=== PATIENT | female | born 1985 | race Caucasian/White ===

== ENCOUNTER 2018-08-20 15:38 | Emergency (ER) | payer SELFPAY ==
[2018-08-20 16:03] VITALS: BP 120/75
--- NOTE | 2018-08-20 16:37 | UC ---
Throat Pain/Nasal Leo HPI - HPI Summary HPI Summary: C/O allergic nasal congestion with sinus pain and ear fullness. Post nasal drip cough. - History of Current Complaint Chief Complaint: UCGeneralIllness Stated Complaint: SINUS Hx Obtained From: Patient Onset/Duration: Gradual Onset, Lasting Days - 3, Worse Since - today Severity: Moderate Pain Intensity: 6 Cough: Productive - post nasal drip mucus Associated Signs & Symptoms: Positive: Sinus Discomfort, Nasal Discharge Related History: Seasonal Allergies - Allergies/Home Medications Allergies/Adverse Reactions: Allergies Allergy/AdvReac Type Severity Reaction Status Date / Time No Known Allergies Allergy Verified 08/20/18 15:52 Home Medications: Home Medications Fexofenadine (NF) [Maryjo 180 (NF)] 180 mg PO BEDTIME 08/20/18 [History Confirmed 08/20/18] Finasteride [Propecia] 1 mg PO BEDTIME 08/20/18 [History Confirmed 08/20/18] Guaifen/Phenyleph/Acetaminophn [Tylenol Sinus Severe Caplet] 2 each PO Q4HR PRN 08/20/18 [History Confirmed 08/20/18] Spironolactone 100 mg PO BEDTIME 08/20/18 [History Confirmed 08/20/18] PMH/Surg Hx/FS Hx/Imm Hx Other Endocrine History: alopecia - Surgical History Surgical History: Yes Surgery Procedure, Year, and Place: hysterectomy. multiple laproscopies. benign tumor removed from left arm. cervix removed prior to hysterectomy. procedure to remove kidney stone. - Family History Known Family History: Positive: Cardiac Disease, Diabetes - Social History Occupation: Employed Full-time Lives: With Family Alcohol Use: Rare Substance Use Type: None Smoking Status (MU): Never Smoked Tobacco Review of Systems All Other Systems Reviewed And Are Negative: Yes ENT: Positive: Ear Ache, Nasal Discharge, Sinus Pain/Tenderness Respiratory: Positive: Cough Physical Exam Triage Information Reviewed: Yes Appearance: No Pain Distress, Well-Nourished, Ill-Appearing - mild Vital Signs: Initial Vital Signs Temp 97.2 F 08/20/18 15:56 Pulse 78 08/20/18 15:56 Resp 20 08/20/18 15:56 BP 120/75 08/20/18 15:56 Pulse Ox 100 08/20/18 15:56 Vital Signs Reviewed: Yes Eyes: Positive: Conjunctiva Inflamed - with allergies ENT: Positive: Pharynx normal, Nasal congestion - allergic congestion, TMs normal Neck exam: Normal Respiratory Exam: Normal Cardiovascular Exam: Normal Musculoskeletal Exam: Normal Neurological Exam: Normal Psychological Exam: Normal Skin Exam: Normal Throat Pain/Nasal Course/Dx - Differential Dx/Diagnosis Differential Diagnosis/HQI/PQRI: Otitis Media, Pharyngitis, Sinusitis, URI Provider Diagnosis: Allergic rhinitis, Acute sinusitis Discharge - Sign-Out/Discharge Documenting (check all that apply): Patient Departure All imaging exams completed and their final reports reviewed: No Studies - Discharge Plan Condition: Stable Disposition: HOME Prescriptions: Amoxicillin PO (*) [Amoxicillin 875 MG (*)] 875 mg PO BID #20 tab Montelukast Sodium TAB* [Singulair 10 MG TAB*] 10 mg PO BEDTIME #30 tab Patient Education Materials: Allergic Rhinitis (ED), Sinusitis (ED), Amoxicillin (By mouth), Montelukast (By mouth) Referrals: No Primary Care Phys,NOPCP [Primary Care Provider] - Additional Instructions: NEILMED SINUS RINSE: CHECK OUT AT [facility] Saline nasal wash helps with mucous, allergies and congestion. It can be used up to twice a day or only as needed. Use lukewarm tap water. It does not have to be sterilized or distilled water. Do 1/3 on each side and snort out of both nostrils. Repeat the process with 1/6 of the bottle on each side with snorting in between to finish the solution in the bottle - Billing Disposition and Condition Condition: STABLE Disposition: Home
== END 2018-08-20 16:51 | disposition home or self-care (01) ==
LOC: UCCORT 15:38
DX: J30.9 Allergic rhinitis, unspecified (principal); J01.90 Acute sinusitis, unspecified; L65.9 Nonscarring hair loss, unspecified
CPT/HCPCS: 99202; G0463